=== PATIENT | female | born 1970 | race Hispanic/Latino ===

== ENCOUNTER → 2020-04-01 | Day surgery (SDC) | payer OTHER ==
[~2020-04-01] MED LIST: FENTANYL CITRATE/PF 100MCG/2 ML INJ ONE; HYOSCYAMINE 0.125 MG TAB ONE; LEVOTHYROXINE112 MCG PO; MIDAZOLAM HCL 2 MG/2 ML VIAL ONE; PROPOFOL IV EMULSION 10 MG/ML 20 ML VIAL ONE; XANAX0.5 MG PO
[2020-04-01 19:10] VITALS: BP 120/81
== END | disposition home or self-care (01) ==
LOC: OR 13:25
PROVIDERS: ATTEND Internal Medicine Gastroenterology
DX: Z87.19 Personal history of other diseases of the digestive system (principal); Z86.010 Personal history of colon polyps; Z68.41 Body mass index [BMI] 40.0-44.9, adult; K20.90 Esophagitis, unspecified without bleeding; K29.70 Gastritis, unspecified, without bleeding; K62.89 Other specified diseases of anus and rectum; K64.8 Other hemorrhoids; Z01.812 Encounter for preprocedural laboratory examination; Z20.828 Contact with and (suspected) exposure to other viral communicable diseases
CPT/HCPCS: 43239; 45380; 81025; J2250; J2704; J3010; U0002

== ENCOUNTER 2020-06-20 10:06 | Emergency (ER) | payer OTHER ==
[~2020-06-20] VITALS: Ht 160 cm; Wt 103.4 kg
[~2020-06-20 10:06] MED LIST changes: -FENTANYL CITRATE/PF 100MCG/2 ML INJ ONE; -HYOSCYAMINE 0.125 MG TAB ONE; -MIDAZOLAM HCL 2 MG/2 ML VIAL ONE; -PROPOFOL IV EMULSION 10 MG/ML 20 ML VIAL ONE
[2020-06-20] MEDS ORDERED: KETOROLAC TROMETHAMINE 60 MG/2 ML VIAL IM ONE (10:30)
[2020-06-20 12:20] VITALS: BP 104/69
== END 2020-06-20 12:24 | disposition home or self-care (01) ==
LOC: ER 10:17
DX: M25.562 Pain in left knee (principal); M25.561 Pain in right knee; E03.9 Hypothyroidism, unspecified; K21.9 Gastro-esophageal reflux disease without esophagitis
CPT/HCPCS: 93970; 99283; J1885

== ENCOUNTER 2020-07-03 11:33 | Emergency (ER) | payer OTHER ==
[~2020-07-03] VITALS: Ht 160 cm; Wt 104.8 kg
[2020-07-03] MEDS ORDERED: SODIUM CHLORIDE 0.9% 1000ML 1,000 ML IV STA (11:59)
[2020-07-03] MEDS ORDERED: ULTRAM50 MG PO (12:26)
[2020-07-03] MEDS ORDERED: PROTONIX20 MG PO (12:26)
[2020-07-03] MEDS ORDERED: VOLTAREN-XR100 MG PO (12:26)
[2020-07-03] MEDS ORDERED: SODIUM CHLORIDE 0.9% 1000ML 1,000 ML ONE (12:37)
[2020-07-03] MEDS ORDERED: SODIUM CHLORIDE 0.9% 50ML 50 ML ONE (14:08)
[2020-07-03] MEDS ORDERED: IOPAMIDOL 370 MG/ML 200 ML INFUS..BTL INJ ONE (14:09)
[2020-07-03 14:17] VITALS: BP 112/73
== END 2020-07-03 14:13 | disposition home or self-care (01) ==
LOC: FSED 12:00
DX: K92.2 Gastrointestinal hemorrhage, unspecified (principal); K76.0 Fatty (change of) liver, not elsewhere classified; N83.202 Unspecified ovarian cyst, left side
CPT/HCPCS: 74177; 80053; 81003; 81025; 85025; 85610; 99284; J7030; Q9967

== ENCOUNTER 2020-07-05 08:06 | Emergency (ER) | payer OTHER ==
[~2020-07-05] VITALS: Ht 160 cm; Wt 103.9 kg
[~2020-07-05 08:06] MED LIST changes: +PROTONIX20 MG PO; +ULTRAM50 MG PO; +VOLTAREN-XR100 MG PO
[2020-07-05] MEDS ORDERED: NYSTATIN15 G2 TOP (08:44)
[2020-07-05] MEDS ORDERED: DOXYCYCLINE HY100 MG PO (08:44)
[2020-07-05] MEDS ORDERED: DIFLUCAN100 MG PO (08:44)
== END 2020-07-05 08:51 | disposition home or self-care (01) ==
LOC: FSED 08:41
DX: B37.2 Candidiasis of skin and nail (principal); L03.311 Cellulitis of abdominal wall; E03.9 Hypothyroidism, unspecified; F41.9 Anxiety disorder, unspecified; K21.9 Gastro-esophageal reflux disease without esophagitis
CPT/HCPCS: 99282

== ENCOUNTER → 2020-10-23 | Day surgery (SDC) | payer OTHER ==
[~2020-10-23] MED LIST changes: +ALBUTEROL0.63 MG/3 NEB; +AMBIEN10 MG PO; +DIFLUCAN100 MG PO; +DOXYCYCLINE HY100 MG PO; +FENTANYL CITRATE/PF 100MCG/2 ML INJ ONE; +GLUCAGON FOR INJ 1 MG VIAL ONE; +METFORMIN HCL500 MG PO; +MIDAZOLAM HCL 2 MG/2 ML VIAL ONE; +NYSTATIN15 G2 TOP; +PROPOFOL IV EMULSION 10 MG/ML 20 ML VIAL ONE
[2020-10-23 12:38] VITALS: BP 118/76
[2020-10-23 13:48] LABS: C DIFFICILE TOXIN A&B AMP PROB NEGATIVE (NEGATIVE); WBC,FECAL (FECAL LACTOFERRIN) NEGATIVE (NEGATIVE)
== END | disposition home or self-care (01) ==
LOC: OR 08:45
PROVIDERS: ATTEND Internal Medicine Gastroenterology
DX: K57.30 Diverticulosis of large intestine without perforation or abscess without bleeding (principal); K62.89 Other specified diseases of anus and rectum; K64.8 Other hemorrhoids; Z86.010 Personal history of colon polyps; Z68.41 Body mass index [BMI] 40.0-44.9, adult; E03.9 Hypothyroidism, unspecified; Z01.810 Encounter for preprocedural cardiovascular examination
CPT/HCPCS: 36415; 45380; 81025; 82948; 83630; 83993; 87045; 87177; 87328; 87493; 93005; J1610; J2250; J2704; J3010; 45378

== ENCOUNTER 2021-03-17 19:48 | Emergency (ER) | payer OTHER ==
[~2021-03-17] VITALS: Ht 160 cm; Wt 108.4 kg
[~2021-03-17 19:48] MED LIST changes: -FENTANYL CITRATE/PF 100MCG/2 ML INJ ONE; -GLUCAGON FOR INJ 1 MG VIAL ONE; -MIDAZOLAM HCL 2 MG/2 ML VIAL ONE; -PROPOFOL IV EMULSION 10 MG/ML 20 ML VIAL ONE
== END 2021-03-18 00:04 | disposition home or self-care (01) ==
LOC: FSED 21:20
DX: M79.605 Pain in left leg (principal); M54.10 Radiculopathy, site unspecified; E11.9 Type 2 diabetes mellitus without complications; E03.9 Hypothyroidism, unspecified; F41.9 Anxiety disorder, unspecified
CPT/HCPCS: 93971; 99283